=== PATIENT | female | born 1955 | race Caucasian/White ===

== ENCOUNTER → 2023-07-30 12:57 | Outpatient (CLI) | payer OTHER, SELFPAY ==
--- NOTE | 2023-07-30 13:03 | DI.US.S_ITS ---
PROCEDURE: US PELVIC COMPLETE INDICATIONS: Pelvic and perineal pain TECHNIQUE: Real-time scanning was performed of the pelvic organs, with image documentation. Additional endovaginal scanning was necessary due to incomplete visualization of the adnexal and endometrial structures by transabdominal scanning. COMPARISON: None. FINDINGS: Uterus: Surgically absent. Ovaries: Not visualized. There is a 3.5 x 4.2 x 3.9 cm heterogeneous mass in the right pelvis, demonstrating journal vascularity. Other: No pathologic free abdominal or pelvic fluid. IMPRESSION: 1. A solid mass in the left pelvis. Consider CT with oral and IV contrast for further evaluation. 2. Uterus is absent consistent with hysterectomy. 3. Ovaries are not visualized. We strive to produce accurate, complete, and clear reports of imaging services. To assist us in improving patient care, this report was composed using standard report templates and voice recognition software. Therefore, it may contain abnormal punctuation, insertions and/or omissions. Occasional wrong-word or sound-alike substitutions may occur. Though we review the report and make efforts to correct it, we do recommend that the report be read carefully in proper context to recognize any text inaccuracies. Dictated by: Khalif Allen M.D. on 07/30/2023 at 14:34 Approved by: Khalif Allen M.D. on 07/30/2023 at 14:37
== END ==
PROVIDERS: Referring Provider Surgery; Visit Provider Surgery
DX: R10.2 Pelvic and perineal pain (principal); R19.00 Intra-abdominal and pelvic swelling, mass and lump, unspecified site
CPT/HCPCS: 76830; 76856

== ENCOUNTER → 2023-08-01 14:51 | Outpatient (CLI) | payer OTHER, SELFPAY ==
[2023-08-01 16:10] LABS: Cancer Antigen 125 253 U/mL (0-35)
[2023-08-05 12:40] LABS: Human Epididymis Prot 4 92.5 pmol/L (0.0-96.9)
[2023-08-06 13:24] LABS: Inhibin B <7.0 pg/mL (0.0-16.9)
== END ==
PROVIDERS: PCP Family Medicine; Referring Provider Obstetrics & Gynecology; Visit Provider Obstetrics & Gynecology
DX: R19.09 Other intra-abdominal and pelvic swelling, mass and lump (principal)
CPT/HCPCS: 36415; 82107; 83520; 86304; 86305